=== PATIENT | male | born 1945 | race Two or more races ===

== ENCOUNTER 2020-06-12 14:26 | Emergency (ER) | payer OTHER ==
[~2020-06-12] VITALS: Ht 188 cm; Wt 106.6 kg
[2020-06-12 15:21] LABS: Basophils # (auto) 0 10 ^3/uL (0-0.2); Eosinophils # (auto) 0 10 ^3/uL (0-0.8); Eosinophils % (auto) 0.1 % (0.0-7.0); Hematocrit 24.2 % (41.0-53.0); Lymphocytes # (auto) 0.8 10 ^3/uL (0.4-5.4); Monocytes # (auto) 1.1 10 ^3/uL (0-1.3)
[2020-06-12 15:23] LABS: Basophils % (auto) 0.1 % (0.0-2.0); Hemoglobin 8.1 g/dL (13.5-17.5); Lymphocytes % (auto) 5.8 % (10.0-50.0); Mean Corpuscular Hemoglobin 31.1 pg (28.0-32.0); Mean Corpuscular Hgb Conc. 33.3 g/dL (32.0-36.0); Mean Corpuscular Volume 93.2 fL (80.0-100.0); Monocytes % (auto) 7.6 % (0.0-12.0); Neutrophils # (auto) 12.6 10 ^3/uL (1.6-8.6); Neutrophils % (auto) 86.4 % (37.0-80.0); Platelet Count (auto) 205 10^3/uL (140-450); White Blood Cell 14.5 10^3/uL (4.4-10.8)
[2020-06-12 15:57] LABS: Albumin 2.6 g/dL (3.4-5.0); Anion Gap 9 (5-15); Blood Urea Nitrogen 42 mg/dL (7-18); Calcium 7.8 mg/dL (8.5-10.1); Carbon Dioxide 22 mmol/L (21-32); Chloride 107 mmol/L (98-107); Glucose 116 mg/dL (74-106); Magnesium 1.8 mg/dL (1.6-2.6); Potassium 3.5 mmol/L (3.5-5.1); Sodium 138 mmol/L (136-145)
[2020-06-12 16:04] LABS: Alanine Aminotransferase 17 U/L (16-61); Alkaline Phosphatase 47 U/L (45-117); Aspartate Aminotransferase 12 U/L (15-37); BUN/Creatinine Ratio 32.6; Bilirubin, Total 0.7 mg/dL (0.2-1.0); GFR African American 70 mL/min; GFR Non-African American 58 mL/min; Total Protein 6.1 g/dL (6.4-8.2)
[2020-06-12 18:07] LABS: Urine Bacteria MOD /hpf (None Seen); Urine Blood 3+ /uL (Negative); Urine Specific Gravity 1.015 (1.001-1.035); Urine WBC 174 /hpf (0 - 3); Urine WBC Clumps PRESENT /hpf (None Seen)
[2020-06-12] MEDS ORDERED: cefTRIAXone 1GM/50ML D5W 50 ML IV ONE (18:15)
[2020-06-12 22:45] LABS: INR 1.08 (0.9-1.15); Partial Thromboplastin Time 28.7 sec (23.0-31.2)
[2020-06-13 01:20] VITALS: BP 100/53
== END 2020-06-12 17:27 ==
LOC: EDBD 14:26 → ER 14:26
DX: D64.9 Anemia, unspecified (principal); R42 Dizziness and giddiness; R07.9 Chest pain, unspecified; R31.9 Hematuria, unspecified; N39.0 Urinary tract infection, site not specified; I11.0 Hypertensive heart disease with heart failure; I50.42 Chronic combined systolic (congestive) and diastolic (congestive) heart failure; E78.5 Hyperlipidemia, unspecified; Z20.822 Contact with and (suspected) exposure to COVID-19
CPT/HCPCS: 36415; 70450; 71045; 80053; 81001; 83735; 83880; 84484; 85025; 85610; 85730; 87426; 93005; 96365; 99291; J0696